=== PATIENT | male | born 1955 | race Caucasian/White ===

== ENCOUNTER → 2020-08-22 | Outpatient (CLI) | payer MEDICARE | END | disposition home or self-care (01) | LOC: LAB 15:12 | PROVIDERS: ATTEND Surgery | DX: I72.3 Aneurysm of iliac artery (principal) | CPT/HCPCS: 36415; 82565; 84520 ==

== ENCOUNTER → 2020-09-22 | Outpatient (CLI) | payer MEDICARE ==
[~2020-09-22] MED LIST: OMNIPAQUE 350 MG/ML, 100ML BOTTLE ONE
== END | disposition home or self-care (01) ==
LOC: CFH 14:25
PROVIDERS: ATTEND Surgery
DX: I72.3 Aneurysm of iliac artery (principal); R91.1 Solitary pulmonary nodule; J43.9 Emphysema, unspecified; I77.810 Thoracic aortic ectasia
CPT/HCPCS: 71275; 74174; Q9967